=== PATIENT | male | born 1975 | race African-American/Black ===

== ENCOUNTER 2018-09-08 07:05 | Day surgery (SDC) | payer OTHER ==
[~2018-09-08 07:05] MED LIST: CEFAZOLIN 2 GM/D5W RTU 2 GM/50 ML RTUPB IV ONE; CEFAZOLIN 2 GM/D5W RTU 2 GM/50 ML RTUPB IV PRN
[2018-09-08] MEDS ORDERED: BUPIVACAINE HCL 0.5 % INJ/PF 30 ML SDV ONE (08:48)
[2018-09-08] MEDS ORDERED: FENTANYL CITRATE INJ/PF 100 MCG/2 ML AMPUL ONE (08:51)
[2018-09-08] MEDS ORDERED: PROPOFOL INJ 200 MG/20 ML VIAL IV ONE (08:51)
[2018-09-08] MEDS ORDERED: HYDROMORPHONE HCL INJ/PF 2 MG/ML AMPULE ONE (08:51)
[2018-09-08] MEDS ORDERED: MIDAZOLAM 2 MG/2 ML INJ ONE (09:01)
[2018-09-08] MEDS ORDERED: MEPERIDINE HCL/PF INJ 25 MG/1 ML DISP.SYRIN IV PRN (09:49)
[2018-09-08] MEDS ORDERED: DIPHENHYDRAMINE HCL 50 MG/ML VIAL IV PRN (09:49)
[2018-09-08] MEDS ORDERED: FENTANYL CITRATE INJ/PF 100 MCG/2 ML AMPUL IV PRN ×3 (09:49)
[2018-09-08] MEDS ORDERED: PROMETHAZINE HCL INJ 25 MG/1 ML VIAL IV PRN ×2 (09:49)
[2018-09-08] MEDS ORDERED: MORPHINE SULFATE 10 MG/ML INJ IV PRN (09:49)
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
[2018-09-08] MEDS ORDERED: OXYCODONE-ACETAMINOPHEN 5-325 MG TABLET PO PRN (11:46)
[2018-09-08] MEDS ORDERED: ONDANSETRON HCL INJ/PF 4 MG/2 ML SDV IV PRN (11:47)
[2018-09-08 13:33] VITALS: BP 116/77
[2018-09-08] MEDS ORDERED: GLYCOPYRROLATE 1 MG/5 ML SYRINGE ONE (13:54)
[2018-09-08] MEDS ORDERED: ONDANSETRON HCL INJ/PF 4 MG/2 ML SDV ONE (13:54)
[2018-09-08] MEDS ORDERED: LIDOCAINE 2% INJ-PF (20 MG/ML) 2 ML AMPUL ONE (13:54)
[2018-09-08] MEDS ORDERED: KETOROLAC TROMETHAMINE 60 MG/2 ML SDV ONE (13:54)
[2018-09-08] MEDS ORDERED: DEXAMETHASONE SOD PHOSPHATE INJ 4 MG/1 ML VIAL ONE (13:54)
--- NOTE | 2018-09-08 14:08 | RADIOLOGY REPORT (SQ) ---
EXAM DESCRIPTION: NO CHG FLUORO COMPLETE DATE/TIME: 09/08/2018 1:52 pm REASON FOR STUDY: ORIF LT PINKY AND LIGAMENT REPAIR LT RING FINGER ASST WITH FLUORO IN OR S62.227A DISP FX OF PROXIMAL PHALANX OF LEFT LITTLE FINGER, S63.415A TRAUM RUPT OF COLLAT LIGMT OF L RNG FNG R AT MCP/IP FINDINGS: Please see combined report for performance of procedure and radiologic supervision and int erpretation. IMPRESSION: Please see combined report for performance of procedure and radiologic supervision and i nterpretation. Reading location - IP/workstation name: [email or web address]
--- NOTE | 2018-09-08 14:08 | RADIOLOGY REPORT (SQ) ---
EXAM DESCRIPTION: FINGER LEFT COMPLETED DATE/TIME: 09/08/2018 1:52 pm REASON FOR STUDY: ORIF LT PINKY AND LIGAMENT REPAIR LT RING FINGER ASST WITH FLUORO IN OR S62.954I DISP FX OF PROXIMAL PHALANX OF LEFT LITTLE FINGER, S63.415A TRAUM RUPT OF COLLAT LIGMT OF L RNG FN GR AT MCP/IP COMPARISON: None. FLUOROSCOPY TIME: 23 seconds Spot images saved to PACS. TECHNIQUE: Intra-operative images acquired during surgical procedure to evaluate progress. NUMBER OF IMAGES: 5 LIMITATIONS: None. FINDINGS: Fluoroscopy was provided for intraoperative procedure. Please refer to the operative repo rt for further discussion. IMPRESSION: IMAGE(S) OBTAINED DURING PROCEDURE. COMMENT: Quality ID [id number]: Final reports for procedures using fluoroscopy that document radiation exp osure indices, or exposure time and number of fluorographic images (if radiation exposure indices are not available) Please consult full operative report of the attending physician for description of the procedure. TECHNICAL DOCUMENTATION: JOB ID: [id number] [employer]- All Rights Reserved Reading location - IP/workstation name: [email or web address]
== END 2018-09-08 13:15 | disposition home or self-care (01) ==
LOC: OROUT 07:05
PROVIDERS: ATTEND Orthopaedic Surgery
DX: S62.617A Displaced fracture of proximal phalanx of left little finger, initial encounter for closed fracture (principal); S63.415A Traumatic rupture of collateral ligament of left ring finger at metacarpophalangeal and interphalangeal joint, initial encounter; V43.92XA Unspecified car occupant injured in collision with other type car in traffic accident, initial encounter
CPT/HCPCS: 73140; 26735; 26540; C1713 ×2; J2250; J3490 ×3; J1100; J1885; J3010; J1170; J2405; J2704; J0690; 01830